=== PATIENT | female | born 1975 | race Caucasian/White ===

== ENCOUNTER 2024-08-02 10:35 | Emergency (ER) | payer OTHER, SELFPAY ==
[2024-08-02 10:39] VITALS: BP 191/114
[2024-08-02 11:07] LABS: Urine Albumin Trace (Neg - Trace); Urine Bilirubin Negative (Negative); Urine Character Clear (Clear); Urine Color Yellow; Urine Glucose Negative (Negative); Urine Ketone Negative (Negative); Urine Leukocyte 2+ (Negative); Urine Nitrite Negative (Negative); Urine Occult Blood 3+ (Negative); Urine Urobilinogen Negative (Neg - 1+)
[2024-08-02 11:47] LABS: Urine Bacteria Moderate (Negative); Urine White Cell 30-40 /HPF (0-5)
[2024-08-02 11:48] VITALS: BMI 59.5
--- NOTE | 2024-08-02 12:21 | ED.GENMED ---
History of Present Illness
General
Chief Complaint: Urinary Symptoms
Source: patient
Exam Limitations: none
Time Seen by Provider: 08/02/24 12:21
Nursing documentation reviewed up to this point in time: agreed with
History of Present Illness
History of Present Illness:
49-year-old female with history of HTN, UTI, iron deficiency anemia presents stating [place] was in [place] vacation 9 days ago when she developed R flank pain, took Aleve and felt better.
8 days ago pain back, nausea, no vomiting
7 days ago n&v x 4, slept a lot, urine frequency, no burning or abdominal pain.
6 days ago nausea, no vomiting, general body aches, felt feverish w chills, had sweats
[address] home, body ache persisted
4 days ago body aches gone, felt better, ate well.
Last p.m. R flank pain returned and had trouble sleeping through the night due to pain. Pain remains 5/10. Denies nausea now.
Past History
Past History
ED Past Medical History: HTN and Other (Anemia)
Social History
Tobacco: Non-smoker
Living: with family
Employment: Employed
Family History
Family History: Other
Review of Systems
Review of Systems
Allergies reviewed?: Yes
All Other Systems: ROS reviewed and negative except as documented in HPI and ROS
Constitutional: Reports fever and chills
Respiratory: Denies trouble breathing
Cardiac: Denies chest pain
ABD/GI: Reports nausea and vomiting; Denies abdominal pain or diarrhea
: Reports frequency and flank pain (right); Denies dysuria or difficulty voiding
Musculoskeletal: Reports no symptoms (General body aches have subsided)
Skin: Reports no symptoms
Neurological: Reports no symptoms
Phy Exam
Physical Exam
Physical Exam:
GENERAL: No acute distress. A&Ox3.
CONSTITUTIONAL: Afebrile.
EYES: clear , conjunctivae normal
ENMT: moist mucus membranes, Pharynx nl
RESPIRATORY: Regular respirations, nonlabored, lungs clear.
CARDIOVASCULAR: Regular rate and rhythm, no murmurs, no rubs.
GI: Soft, nontender, normal BS. No flank tenderness to percussion
MUSCULOSKELETAL: Moves with ease. Well perfused.
SKIN: Warm, dry, pink
PSYCH: Normal mood and affect. Well kept, interactive and appropriate
NEUROLOGIC: Awake, alert and oriented. No focal neurological deficits
Course
Orders/Labs/Results
Orders:
Orders
08/02/24 10:48
Urinalysis Reflex To Culture Urgent
Date Specimen was Collected: 08/02/24
Time Specimen was Collected: 10:41
Urine Microscopic Reflex Cult Urgent
Urine Culture Urgent
MURRAY Source: U
Specimen Description:
Date Specimen was Collected: 08/02/24
Time Specimen was Collected: 10:41
08/02/24 12:30
CT Abd/pel Without Iv Or Oral Urgent
Comment:
Reason For Exam: R flank pain, hematuria
08/02/24 12:47
Complete Blood Count/With Diff Urgent
08/02/24 14:25
Add On- LAB Stat
Comments:: add on
Tests Added?: add on HCG
08/02/24 14:48
Test Result ONCE
08/02/24 14:50
Comprehensive Metabolic Panel Urgent
, Serum Qualitative Screen [HCG, Serum Qualitative Screen] Urgent
Comment: add on
08/02/24 16:41
Tamsulosin [Flomax] 0.4 mg PO NOW STA
08/02/24 17:03
LevoFLOXacin [Levaquin] 500 mg PO NOW STA
Abnormal Lab Results
08/02/24 08/02/24 08/02/24
10:48 12:47 14:50
Hgb 10.2 L g/dL
(12.0-16.0)
Hct 33.0 L %
(37.0-47.0)
MCV 72.4 L fL
(81.0-99.0)
MCH 22.4 L pg
(27.0-31.0)
MCHC 30.9 L g/dL
(33.0-37.0)
RDW 16.8 H %
(11.5-14.5)
Abs Immat Gran (auto) 0.1 H 10^3/uL
(0-0.05)
Absolute Neuts (auto) 7.6 H 10^3/uL
(1.4-6.5)
Absolute Monos (auto) 0.8 H 10^3/uL
(0.1-0.6)
Immature Gran % 1.1 H %
(0-0.5)
Neutrophils % 75.6 H %
(42.2-75.2)
Lymphocytes % 13.4 L %
(20.5-51.1)
BUN 6 L mg/dl
(7-17)
Glucose 100 H mg/dl
(70-99)
Ur Occult Blood Reflex 3+ A
(Negative)
Leukocyte Esterase Rfl 2+ A
(Negative)
Urine RBC 7-10 A /HPF
(0-2)
Urine WBC (Reflex) 30-40 A /HPF
(0-5)
Urine Bacteria (Reflex) Moderate A
(Negative)
08/02/24 12:47
08/02/24 14:50
Vital Signs
Initial and Last Documented VS:
Initial Vital Signs
Temp Pulse Resp BP Pulse Ox
98.6 F 92 20 191/114 93
08/02/24 10:39 08/02/24 10:39 08/02/24 10:39 08/02/24 10:39 08/02/24 10:39
Last Documented Vital Signs
Temp Pulse Resp BP Pulse Ox
98.6 F 92 20 160/95 94
08/02/24 10:39 08/02/24 10:39 08/02/24 10:39 08/02/24 16:47 08/02/24 16:47
MDM/Problems Addressed
Differential Diagnosis Includes:
UTI, Pyelonephritis, Kidney stone
MDM/Problems Addressed:
49 yo female with R flank pain, fevers, body aches, n/v intermittently past 8 days
Afebrile, NAD
CBC: Consistent with her chronic iron deficiency anemia, otherwise unremarkable
CMP: Normal
hCG negative
UA: WBC 30-40, RBC 7-10, leukocytes +2, negative nitrites, occult blood +3. Moderate bacteria
4:30 PM:
CT abdomen pelvis plain: Radiology report read: IMPRESSION:
1) there is a 6 mm obstructing calculus at the right ureterovesical junction associated with mild-moderate right hydronephrosis and right hydroureter with mild right perinephric edema
2). Splenomegaly with elevation of the left hemidiaphragm
3). The uterus is enlarged with 14.7 cm uterine fibroid
4). 5 cm left ovarian cyst
5). 1 cm right ovarian cyst
Discussed findings with patient. copy of report given to her
She will f/u with her PCP within next 1-2 weeks
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
Plan: Pt afebrile, normal WBC, well appearing, minimal pain, low ureteral stone, DC to home on antibiotic, flomax and f/u w Urology.
Consulted Urology Dr. Mohamud who reviewed labs and CT and agrees pt can go home, recommends Bactrim (pt allergic to sulfa) or Levaquin 500 daily x 7 days , and Flomax both rx's sent to her pharmacy
He wants her to call office tomorrow for f/u appt.
Pt is comfortable with this plan
*Critical Care Note
Total Time (30-74mins, 75-104mins- exclusive of procedures): Not Applicable
ED Attending Note
-
Portions of this chart may have been created with voice recognition software.� Occasional wrong word or��sound alike� substitutions may have occurred due to the inherent limitations of voice recognition software.
Discharge Plan
Departure
Patient Disposition: Home (Routine Discharge)
Date of Disposition: 08/02/24
Time of Disposition: 16:43
Patient with high blood pressure during this ER visit?: Yes
Condition: Good
Discharge Problem:
Calculus of distal right ureter, UTI (urinary tract infection)
Instructions: Kidney stones in adults, Urinary Tract Infection, Adult (DC)
Prescriptions:
New
levofloxacin 500 mg tablet
500 mg PO DAILY 7 Days Qty: 7 0RF
tamsulosin [Flomax] 0.4 mg capsule
0.4 mg PO DAILY Qty: 4 0RF
No Action
lisinopril 20 MG tablet
20 mg PO HS
amlodipine 10 MG tablet
10 mg PO HS
ferrous sulfate [FeroSul] 325 MG tablet
325 mg PO HS
cefuroxime axetil 500 MG tablet
500 mg PO BID Qty: 8 0RF
azithromycin [Zithromax] 500 MG tablet
500 mg PO DAILY Qty: 4 0RF
Referrals:
Santhosh Mohamud MD [Active] - Tomorrow
Bernard Phillips MD [Family Provider] -
Activity Restrictions/Additional Instructions:
As we discussed, I sent a prescription to your pharmacy for Levaquin antibiotic and also Flomax. Starting tomorrow you were given a dose of each of them here today
I spoke with the urologist Dr. Mohamud who wants you to call the office tomorrow for follow-up.
Return here immediately for fever, chills, vomiting, worsening pain or feeling sicker in any way
Interventions
Interventions:
*Risk Screen - Suicide Last Done: 08/02/24 11:48
*General Assessment Last Done: 08/02/24 11:48
*Neglect/Abuse Screening Last Done: 08/02/24 11:48
ED- Fall Risk Assessment Last Done: 08/02/24 11:48
*ED COVID-19 Vaccine History Last Done: 08/02/24 11:48
*Nursing Disposition Last Done: 08/02/24 17:11
ED-Female Genitourinary Assessment Last Done: 08/02/24 11:48
Discharge Date and Time
Discharge Date/Time: 08/02/24 17:11
Print Language: [email or web address]
[2024-08-02 13:08] LABS: % Basophils 0.5 % (0-2); % Eosinophils 1.4 % (0-6); % Immature Granulocytes 1.1 % (0-0.5); % Lymphocytes 13.4 % (20.5-51.1); % Neutrophils 75.6 % (42.2-75.2); Absolute Basophils 0.1 10^3/uL (0-0.2); Absolute Eosinophils 0.1 10^3/uL (0-0.7); Absolute Immature Granulocytes 0.1 10^3/uL (0-0.05); Absolute Lymphocytes 1.4 10^3/uL (1.2-3.4); Absolute Monocytes 0.8 10^3/uL (0.1-0.6); Absolute Neutrophils 7.6 10^3/uL (1.4-6.5); Hemoglobin 10.2 g/dL (12.0-16.0); Mean Corp Hgb Conc. 30.9 g/dL (33.0-37.0); Mean Corpuscular Hgb 22.4 pg (27.0-31.0); Mean Corpuscular Volume 72.4 fL (81.0-99.0); Mean Platelet Volume 10.4 fL (7.4-10.4); Nucleated Red Blood Cells % 0 %; Platelet Count 317 10^3/uL (130-400); Red Blood Cell Count 4.56 10^6/uL (4.20-5.40); Red Cell Dist. Width 16.8 % (11.5-14.5); White Blood Cell Count 10.1 10^3/uL (4.8-10.8)
[2024-08-02 15:21] LABS: ALT (SGPT) 14 U/L (0-35); AST (SGOT) 20 U/L (14-36); Albumin 3.5 g/dl (3.5-5.0); Alkaline Phosphatase 83 U/L (38-126); Blood Urea Nitrogen 6 mg/dl (7-17); Calcium 9.7 mg/dl (8.4-10.2); Carbon Dioxide 28 mmol/L (22-30); Chloride 102 mmol/L (98-107); Estimated Creatinine Clearance > 125 ml/min; Glucose 100 mg/dl (70-99); Sodium 139 mmol/L (135-145); Total Bilirubin 0.5 mg/dl (0.2-1.3); Total Protein 6.5 g/dl (6.3-8.2); eGFR > 60.00
[2024-08-02 15:31] LABS: HCG, Serum Qualitative Screen Negative
[2024-08-02 15:53] VITALS: BP 164/82
[2024-08-02 16:00] VITALS: BP 164/91
[2024-08-02 16:47] VITALS: BP 160/95
[2024-08-02] MEDS: FLOMAX 0.4 MG PO (16:56)
[2024-08-02] MEDS: LEVAQUIN 500 MG PO (17:06)
== END 2024-08-02 17:11 | disposition home or self-care (01) ==
LOC: EMR 10:35
PROVIDERS: Registered Nurse; EMERGENCY PHYSICIAN Emergency Medicine; FAMILY PHYSICIAN Family Medicine
DX: N39.0 Urinary tract infection, site not specified (principal); N13.2 Hydronephrosis with renal and ureteral calculous obstruction; I10 Essential (primary) hypertension; D50.9 Iron deficiency anemia, unspecified; Z87.440 Personal history of urinary (tract) infections; Z88.2 Allergy status to sulfonamides
CPT/HCPCS: 99284; 74176; 80053; 81003; 81015; 84703; 85025; 87077; 87086; 87186